=== PATIENT | male | born 1960 | race Caucasian/White ===

== ENCOUNTER → 2016-04-30 | Outpatient (CLI) | payer OTHER, BC ==
[~2016-04-30] MED LIST: ACET325T95 PO; ATEN-173 PO; LISI-725 PO
--- NOTE | 2016-04-30 15:18 | DIAGNOSTIC IMAGING REPORT ---
MRI right shoulder RIGHT UPPER EXT JOINT WITHOUT CLINICAL HISTORY: R SHOULDER PAIN Right pain TECHNIQUE: Multiaxial MRI acquisition COMPARISON STUDY: None FINDINGS: Signal characteristics of the osseous structures indicate moderate hypertrophic change acromioclavicular joint. Impingement is considered minimal. The acromion is intact. There are mild degenerative changes of the glenoid labrum with mild substance loss of the articular surfaces. A Well-defined acute labral tear is not appreciated. There is a mild biceps tendinitis. The infraspinatus tendon is unremarkable. There is a partial thickness tear of the subscapularis tendon. Supraspinatus tendon shows a moderate matrix deterioration with mild thinning. A well-defined focal supraspinatus tear is not appreciated. IMPRESSION: 1. Partial thickness tear subscapularis tendon with moderate associated tendinopathy. 2. Moderate degenerative substance change of the supraspinatus tendon although there is no evidence for significant tear at that site. 3. Mild degenerative change of the substance of the glenoid labrum as well as acromioclavicular joint. 4. No evidence for a full-thickness rotator cuff tear. 5. Mild biceps tendinitis Electronically signed by: Wally Velásquez M.D. 04/30/2016 3:16 PM Dictated Date/Time: 04/30/2016 3:09 PM
== END | disposition home or self-care (01) ==
PROVIDERS: ATTEND Orthopaedic Surgery
DX: S46.811A Strain of other muscles, fascia and tendons at shoulder and upper arm level, right arm, initial encounter (principal); X58.XXXA Exposure to other specified factors, initial encounter; R93.7 Abnormal findings on diagnostic imaging of other parts of musculoskeletal system

== ENCOUNTER → 2016-09-10 | Outpatient (CLI) | payer OTHER, BC ==
[2016-09-10 12:45] LABS: BASO % 1.4 %; COMPLETE YES; EOS % 9.1 %; IG% 0.4 %; LYMPH % 17.9 %; LYMPH ABS # 1.26 K/uL (1.2-3.4); MEAN CELL VOLUME 92.8 fL (80-100); MEAN CORPUSCULAR HEMOGLOBIN 30.9 pg (25-34); MEAN CORPUSCULAR HGB CONC 33.3 g/dl (32-36); MEAN PLATELET VOLUME 11.7 fL (7.4-10.4); MONO % 12.5 %; NEUT % 58.7 %; PLATELET COUNT 219 K/uL (130-400); RED BLOOD COUNT 5.28 M/uL (4.7-6.1); WHITE BLOOD COUNT 7.02 K/uL (4.8-10.8)
[2016-09-10 13:00] LABS: BLOOD UREA NITROGEN 19 mg/dl (7-18); CALCIUM 8.9 mg/dl (8.5-10.1); CARBON DIOXIDE 28 mmol/L (21-32); CHLORIDE 108 mmol/L (98-107); GLUCOSE 115 mg/dl (70-99); POTASSIUM 4.2 mmol/L (3.5-5.1); SODIUM 143 mmol/L (136-145)
== END | disposition home or self-care (01) ==
LOC: C.CPL 11:16
PROVIDERS: ATTEND Orthopaedic Surgery
DX: M25.511 Pain in right shoulder (principal); R00.1 Bradycardia, unspecified

== ENCOUNTER → 2017-07-02 | Outpatient (CLI) | payer OTHER, BC ==
[~2017-07-02] MED LIST changes: -ACET325T95 PO; +ATOR-22 PO; -LISI-725 PO; +LISI-729 PO; +PRED20TA PO; +TYLOTC325 PO; +[UNRECOGNIZED DRUG - OTHER] PO
[2017-07-02 16:43] LABS: BASO % 0.6 %; BASO ABS # 0.05 K/uL (0-0.2); EOS % 3.7 %; EOS ABS # 0.31 K/uL (0-0.5); HEMATOCRIT 43.8 % (42-52); HEMOGLOBIN 15.6 g/dL (14.0-18.0); IG# 0.05 K/uL (0.00-0.02); LYMPH ABS # 2.03 K/uL (1.2-3.4); MEAN CELL VOLUME 91.8 fL (80-100); MEAN CORPUSCULAR HEMOGLOBIN 32.7 pg (25-34); MEAN CORPUSCULAR HGB CONC 35.6 g/dl (32-36); MEAN PLATELET VOLUME 11.7 fL (7.4-10.4); MONO % 12.9 %; MONO ABS # 1.09 K/uL (0.11-0.59); NEUT % 58.2 %; NEUT ABS # 4.93 K/uL (1.4-6.5); PLATELET COUNT 167 K/uL (130-400); RED CELL DISTRIBUTION WIDTH CV 12.2 % (11.5-14.5); RED CELL DISTRIBUTION WIDTH SD 41.3 fL (36.4-46.3); WHITE BLOOD COUNT 8.46 K/uL (4.8-10.8)
[2017-07-02 17:04] LABS: BLOOD UREA NITROGEN 14 mg/dl (7-18); CALCIUM 9.1 mg/dl (8.5-10.1); CARBON DIOXIDE 27 mmol/L (21-32); GLUCOSE 69 mg/dl (70-99); POTASSIUM 3.8 mmol/L (3.5-5.1); SODIUM 139 mmol/L (136-145)
== END | disposition home or self-care (01) ==
LOC: C.LAB 15:19
PROVIDERS: ATTEND Orthopaedic Surgery
DX: S83.281A Other tear of lateral meniscus, current injury, right knee, initial encounter (principal); X58.XXXA Exposure to other specified factors, initial encounter

== ENCOUNTER → 2017-07-18 | Day surgery (SDC) | payer OTHER, BC ==
--- NOTE | 2017-07-02 15:56 | HISTORY & PHYSICAL EXAMINATION ---
DATE OF ADMISSION: 07/18/2017 SUBJECTIVE CHIEF COMPLAINT: Right knee pain. HISTORY OF PRESENT ILLNESS: The patient is a 56-year-old male that presents with right knee pain. He notes pain going up and down stairs and he notes a clicking and locking with daily activities. He has pain along the medial joint line. He has pain along the lateral joint line as well. MRI demonstrated a lateral meniscus tear. The patient would like to undergo a right knee partial lateral meniscectomy. PAST MEDICAL HISTORY: Significant for hypertension and hypercholesterolemia. PAST SURGICAL HISTORY: Significant for a left rotator cuff repair and nasal reconstruction. SOCIAL HISTORY: He drinks a couple beers a day. He denies smoking or tobacco use. Denies IV or illegal drug use. He lives in a 1-therese house. He currently works as a [employer] FAMILY HISTORY: Noncontributory. ALLERGIES: No known drug allergies. MEDICATIONS: Atenolol and lisinopril. REVIEW OF SYSTEMS: Denies headaches, fevers, chills, double vision, blurry vision, sore throat, cough, chest pain, nausea, vomiting, diarrhea, constipation, numbness, tingling, tired, urinary difficulties, thoughts to harm self or harm others. He is positive for joint pain, joint stiffness of the right knee. OBJECTIVE: GENERAL APPEARANCE: The patient is a 56-year-old male sitting, in no acute distress. He is well dressed, well nourished. He is awake, alert and oriented x3. VITAL SIGNS: He is 5 feet 10 inches tall, 205 pounds. Blood pressure is 130/84. HEENT: Normocephalic, atraumatic. Extraocular movements are intact. Mucosa was moist. No septal deviation. NECK: Supple with no lymphadenopathy, no JVD, no thyromegaly. HEART: Regular rate and rhythm. No murmurs or gallops. LUNGS: Clear to auscultation with no wheezing or rhonchi. ABDOMEN: Soft, nontender, nondistended. Normal bowel sounds, no hepatosplenomegaly. EXTREMITIES: Paying particular attention to the right knee. He does have lateral joint line pain as well medial joint line pain. He has positive Troy test. Range of motion is 0-110 degrees. He does have decreased strength due to pain. Ligaments were intact. NEUROLOGIC: Cranial nerves II-XII were tested and pulses were compared bilaterally and were equal. IMAGING: MRI of the right knee demonstrated a lateral meniscus tear. IMPRESSION: Right knee lateral meniscus tear. PLAN: The patient is scheduled for a right partial lateral meniscectomy. The patient has undergone conservative treatment with no relief of his symptoms. MRI demonstrated a lateral meniscus tear of the right knee. The patient would like to proceed with scheduled surgery. Risks and benefits were discussed with the patient including but not limited to infection, pain, DVT, failure to relieve him symptoms, damage to blood vessels, damage to nerves, decreased range of motion, risks of anesthesia and were all discussed with the patient. The patient understands these risks and he wishes to proceed. All questions were answered to his satisfaction. No DVT prophylaxis needed. Discharge, he would like to go home with self-care. NICKI
[~2017-07-18] VITALS: Ht 175.3 cm; Wt 94.5 kg
[~2017-07-18] MED LIST changes: +ATROPINE SULFATE 0.1 MG/ML 5ML SYR IV PRN; +BUPIVACAINE 0.5 % 5 MG/1 ML MPF 30ML VIAL ONE; +CEFAZOLIN SOD 2000MG/15 ML IV PUSH IV ONE; +DEXAMETHASONE SOD INJ 4 MG/ML VIAL ONE; +EpHEDrine SULFATE INJ 50 MG/ML AMP IV PRN; +EpINEphrine HCL INJ 1 MG/ML 1ML SYRINGE ONE; +FENTANYL CITRATE INJ 50 MCG/1 ML 2 ML VIAL IV PRN; +FENTANYL CITRATE INJ 50 MCG/1 ML 2 ML VIAL ONE; +GLYCOPYRROLATE INJ 0.2 MG/ML VIAL ONE; +HYDR-5688 PO; +HYDROCODONE/ACETAMIN 5/325MG TAB PO PRN; +HYDROmorphone INJ 2 MG/ML SYR/VIAL IV PRN; +HydrALAZINE HCL 20 MG/ML VIAL ONE; +LACTATED RINGER'S 1000ML 1,000 ML IV SCH; +LIDOCAINE HCL 2% 2 ML VIAL (20MG/ML) ONE; +LIDOCAINE/EPINEPHRINE 1% 20 ML VIAL ONE; +MIDAZOLAM HCL 1 MG/ML 2ML VIAL ONE; +NURSING VERBAL MED ORDER ONE; +ONDANSETRON INJ 2 MG/ML 2 ML VIAL IV PRN; +ONDANSETRON INJ 2 MG/ML 2 ML VIAL ONE; +PHENYLEPHRINE 100MCG/ML 5ML SYR IV PRN; +PROM25TA9 PO; +PROMETHAZINE HCL INJ 12.5 MG in SODIUM CHLORIDE 0.9% 50ML 50 ML IV PRN; +PROPOFOL IV EMULSION 10 MG/ML 20 ML VIAL IV ONE; +SODIUM CHLORIDE 0.9% 1000ML 1,000 ML IV SCH
[2017-07-18 09:57] VITALS: BP 149/81; PULSE 65; TEMP 36.9; O2SAT 96; Ht 175.3 cm; Wt 94.5 kg
--- NOTE | 2017-07-18 10:27 | History & Physical Bridge Note ---
H&P Re-Evaluation Bridge Note: I have examined the patient, reviewed the History & Physical and in the interval since the performance of the History & Physical I have noted the following changes of clinical significance: No changes noted
--- NOTE | 2017-07-18 11:47 | Discharge Instructions ---
Discharge Instructions Date of Service Jul 18, 2017. Visit Reason for Visit: Right Knee Lateral Meniscus Tear Discharge Discharge Diagnosis / Problem: S/P Right knee partial lateral meniscectomy Discharge Goals Goal(s): Decrease discomfort, Improve function Activity Recommendations Activity Limitations: per Instructions/Follow-up section Anesthesia . Post Anesthesia Instructions: If you have had General Anesthesia or IV Sedation: * Do not drive today. * Resume driving when surgeon permits. * Do not make important decisions or sign legal documents today. * Call surgeon for: 1. Temperature elevations greater than 101 degrees F. 2. Uncontrollable pain. 3. Excessive bleeding. 4. Persistent nausea and vomiting. 5. Medication intolerance (nausea, vomiting or rash). * For nausea and vomiting use only clear liquids such as: tea, soda, bouillon until nausea subsides, then gradually increase diet as tolerated. * If you have any concerns or questions, call your surgeon's office. If physician is unavailable and it is an emergency, call 911 or go to the nearest emergency room. . Instructions / Follow-Up Instructions / Follow-Up ACTIVITY RECOMMENDATIONS: * You may walk on the leg with or without crutches as comfort permits. * Bending of the knee should start at once. * Do not shower for 48 hours following surgery. SPECIAL CARE INSTRUCTIONS: * You may cleanse the skin adjacent to the small wounds with soap and water at the time of the first dressing change. * The application of an ice bag to the front and sides of the knee will decrease swelling and discomfort for the first 48 hours. * The small incisions may be sore and develop bruising. This bruising does not require any special care. SPECIAL PRECAUTIONS: * If you experience unusual pain unrelieved by prescriptions, temperature elevation (100 degrees F. or above) or progressive swelling or bleeding, you should contact our office at for further evaluation. * You may have been prescribed pain medication. If you experience nausea and/or fine skin rash, discontinue this medication and contact our office at for an alternate medication. DRESSING: * Dressing should be comfortable and absorb any leakage of fluid and/or blood. * The dressing may become moist or bloodstained. * Dressing may be removed 48 hours after surgery and bandaids placed over the small surgical incisions. If can be removed sooner if it becomes very soiled or loose. * Bandaids may be used over next several days as needed and can be discontinued when there is not further drainage from the wounds. FOLLOW UP VISIT: If appointment is not already scheduled: Please call [facility] to make a follow-up appointment for 10 -14 days after your surgery at . Diet Recommendations Recommended Home Diet: no limitations Pending Studies Studies pending at discharge: no Medical Emergencies . Who to Call and When: Medical Emergencies: If at any time you feel your situation is an emergency, please call 911 immediately. . Non-Emergent Contact Non-Emergency issues call your: Surgeon Call Non-Emergent contact if: temperature is above 101.5, your pain is worsening, wound has increased drainage, wound has increased redness . . "Provider Documentation" section prepared by Ketan Marcos. . [place] Drug Monitoring Program Search Results: patient reviewed within database, no issues identified
--- NOTE | 2017-07-18 12:14 | [facility] Operative Report ---
Operative Report Operative Date Jul 18, 2017. Pre-Operative Diagnosis Right knee lateral meniscus tear Post-Operative Diagnosis Same plus chondromalacia lateral femoral condyle Procedure(s) Performed Right Knee Arthroscopy with Partial Lateral Menisectomy and Chondroplasty lateral femoral condyle Surgeon Dr. Urbina Welding Machine Operator/Tender Surgeon(s) None Estimated Blood Loss 1 cc Findings As above Specimens None per surgeon Drains None Anesthesia Type General Complication(s) none Disposition Recovery Room / PACU Indications The patient is a 48-year-old male developed a tear of the lateral meniscus the right knee. He wishes to proceed with arthroscopy. Description of Procedure MRI demonstrated a complex tear of the posterior horn of the lateral meniscus. We discussed various treatment measures. The patient wished to proceed with arthroscopic partial lateral meniscectomy. Risks, benefits and alternatives to surgery including, but not limited to, infection, DVT, pain, stiffness, need for revision surgery, failure to relieve all symptoms, damage to blood vessels, damage to nerves, risk of the anesthesia were discussed with the patient and they wished to proceed. The patient was identified. Laterality was confirmed and marked. The patient received a preoperative antibiotic. They were transferred to the operating room and placed in supine position and induced into general endotracheal anesthesia per the anesthesia staff. A well-padded tourniquet was placed on the thigh and the limb was prepped and draped in the usual standard manner with ChloraPrep. The limb was exsanguinated and the tourniquet was inflated. I made a standard anterolateral viewing portal made through a stab incision and bluntly entered the suprapatellar pouch. Then under spinal needle localization I established an anteromedial portal. There was grade 0 cartilage of the patella. There was grade 0 cartilage of the trochlea. There was grade 0 cartilage of the medial femoral condyle. There was grade 0 cartilage of the medial tibial plateau. The medial meniscus was normal. The ACL and PCL were probed and were normal. There was a complex tear of the posterior horn, body, anterior horn of the lateral meniscus. This was debrided back to a stable base utilizing combination of the shaver as well as meniscal biter. There was grade 2 cartilage of the lateral femoral condyle. The unstable chondral flaps were debrided back to stable base utilizing a shaver. There was grade 1 cartilage of the lateral tibial plateau. All of the instrumentation was removed from the knee. The portal sites were closed with nylon. A sterile dressing was applied and the tourniquet was released. All needle and sponge counts were correct at the end of the procedure. The patient was transferred to the PACU in stable condition without apparent complication. I attest to the content of the Intraoperative Record and any orders documented therein. Any exceptions are noted below.
--- NOTE | 2017-07-18 13:02 | Anesthesiology Progress Note ---
Anesthesia Post Op Note Date & Time Jul 18, 2017 at 13:02 Vital Signs Pain Intensity: 0 Vital Signs Past 12 Hours Date Time Temp Pulse Resp B/P (MAP) Pulse Ox O2 Delivery O2 Flow Rate FiO2 07/18/17 12:47 71 18 07/18/17 12:47 74 18 97 07/18/17 12:46 142/81 07/18/17 12:42 80 24 07/18/17 12:42 78 24 94 07/18/17 12:41 116/89 07/18/17 12:40 62 16 07/18/17 12:40 70 16 98 07/18/17 12:36 134/86 07/18/17 12:35 72 26 98 07/18/17 12:35 71 26 07/18/17 12:34 73 21 98 07/18/17 12:34 61 21 07/18/17 12:31 148/79 07/18/17 12:29 70 17 07/18/17 12:29 70 17 98 07/18/17 12:26 140/82 07/18/17 12:25 134/81 07/18/17 12:24 81 12 07/18/17 12:24 82 12 97 07/18/17 12:24 36.6 79 16 134/81 98 Nasal Cannula 4 07/18/17 09:57 36.9 65 20 149/81 (103) 96 Room Air Notes Mental Status: alert / awake / arousable, participated in evaluation Pt Amnestic to Procedure: Yes Nausea / Vomiting: adequately controlled Pain: adequately controlled Airway Patency, RR, SpO2: stable & adequate BP & HR: stable & adequate Hydration State: stable & adequate Anesthetic Complications: no major complications apparent Awake, doing well, no complaints. VSS.
[2017-07-18 13:10] VITALS: BP 105/76; PULSE 80; TEMP 36.4; O2SAT 97
[2017-07-18 13:40] VITALS: BP 159/92; PULSE 73; TEMP 36.6; O2SAT 97
== END | disposition home or self-care (01) ==
LOC: C.ACU 09:30
PROVIDERS: ATTEND Orthopaedic Surgery
DX: S83.281A Other tear of lateral meniscus, current injury, right knee, initial encounter (principal); X58.XXXA Exposure to other specified factors, initial encounter; M94.261 Chondromalacia, right knee; I10 Essential (primary) hypertension; E78.5 Hyperlipidemia, unspecified; E78.00 Pure hypercholesterolemia, unspecified; Z88.5 Allergy status to narcotic agent

== ENCOUNTER → 2017-10-29 | Outpatient (CLI) | payer OTHER, BC ==
[~2017-10-29] MED LIST changes: -ATROPINE SULFATE 0.1 MG/ML 5ML SYR IV PRN; -BUPIVACAINE 0.5 % 5 MG/1 ML MPF 30ML VIAL ONE; -CEFAZOLIN SOD 2000MG/15 ML IV PUSH IV ONE; -DEXAMETHASONE SOD INJ 4 MG/ML VIAL ONE; -EpHEDrine SULFATE INJ 50 MG/ML AMP IV PRN; -EpINEphrine HCL INJ 1 MG/ML 1ML SYRINGE ONE; -FENTANYL CITRATE INJ 50 MCG/1 ML 2 ML VIAL IV PRN; -FENTANYL CITRATE INJ 50 MCG/1 ML 2 ML VIAL ONE; -GLYCOPYRROLATE INJ 0.2 MG/ML VIAL ONE; -HYDR-5688 PO; -HYDROCODONE/ACETAMIN 5/325MG TAB PO PRN; -HYDROmorphone INJ 2 MG/ML SYR/VIAL IV PRN; -HydrALAZINE HCL 20 MG/ML VIAL ONE; -LACTATED RINGER'S 1000ML 1,000 ML IV SCH; -LIDOCAINE HCL 2% 2 ML VIAL (20MG/ML) ONE; -LIDOCAINE/EPINEPHRINE 1% 20 ML VIAL ONE; -MIDAZOLAM HCL 1 MG/ML 2ML VIAL ONE; -NURSING VERBAL MED ORDER ONE; -ONDANSETRON INJ 2 MG/ML 2 ML VIAL IV PRN; -ONDANSETRON INJ 2 MG/ML 2 ML VIAL ONE; -PHENYLEPHRINE 100MCG/ML 5ML SYR IV PRN; -PRED20TA PO; -PROMETHAZINE HCL INJ 12.5 MG in SODIUM CHLORIDE 0.9% 50ML 50 ML IV PRN; -PROPOFOL IV EMULSION 10 MG/ML 20 ML VIAL IV ONE; +RXC5 PO; -SODIUM CHLORIDE 0.9% 1000ML 1,000 ML IV SCH; -TYLOTC325 PO; -[UNRECOGNIZED DRUG - OTHER] PO
--- NOTE | 2017-10-29 09:40 | DIAGNOSTIC IMAGING REPORT ---
CHEST 2 VIEWS ROUTINE CLINICAL HISTORY: PAT preoperative evaluation COMPARISON STUDY: No previous studies for comparison. FINDINGS: The bones soft tissues and hemidiaphragms are normal. The cardiomediastinal silhouette is normal. The lungs are clear. The pulmonary vasculature is normal. IMPRESSION: Negative chest. The above report was generated using voice recognition software. It may contain grammatical, syntax or spelling errors. Electronically signed by: Wally Velásquez M.D. 10/29/2017 9:38 AM Dictated Date/Time: 10/29/2017 9:38 AM
[2017-10-29 10:16] LABS: BASO % 0.9 %; BASO ABS # 0.05 K/uL (0-0.2); EOS ABS # 0.32 K/uL (0-0.5); HEMATOCRIT 47.6 % (42-52); HEMOGLOBIN 16.4 g/dL (14.0-18.0); IG# 0.03 K/uL (0.00-0.02); LYMPH ABS # 1.17 K/uL (1.2-3.4); MEAN CELL VOLUME 93.2 fL (80-100); MEAN CORPUSCULAR HEMOGLOBIN 32.1 pg (25-34); MEAN CORPUSCULAR HGB CONC 34.5 g/dl (32-36); MEAN PLATELET VOLUME 12.5 fL (7.4-10.4); MONO % 12.2 %; MONO ABS # 0.65 K/uL (0.11-0.59); NEUT % 58.3 %; PLATELET COUNT 169 K/uL (130-400); RED CELL DISTRIBUTION WIDTH CV 12.5 % (11.5-14.5); RED CELL DISTRIBUTION WIDTH SD 42.9 fL (36.4-46.3); WHITE BLOOD COUNT 5.32 K/uL (4.8-10.8)
[2017-10-29 11:16] LABS: BLOOD UREA NITROGEN 20 mg/dl (7-18); CARBON DIOXIDE 27 mmol/L (21-32); CREATININE 0.94 mg/dl (0.60-1.40); GLUCOSE 116 mg/dl (70-99); POTASSIUM 4.4 mmol/L (3.5-5.1); SODIUM 138 mmol/L (136-145)
[2017-10-29 11:19] LABS: ALBUMIN 3.9 gm/dl (3.4-5.0); TOTAL PROTEIN 7.3 gm/dl (6.4-8.2)
== END | disposition home or self-care (01) ==
LOC: C.CPL 08:28
PROVIDERS: ATTEND Physician Assistant Medical
DX: Z01.812 Encounter for preprocedural laboratory examination (principal); Z01.810 Encounter for preprocedural cardiovascular examination; Z01.818 Encounter for other preprocedural examination

== ENCOUNTER 2017-11-06 08:04 | Day surgery (SDC) | payer OTHER, BC ==
--- NOTE | 2017-10-28 15:37 | PAT Medication Instructions ---
Service Date Oct 28, 2017. Current Home Medication List Atenolol (Tenormin), 25 MG PO QAM Atorvastatin (Lipitor), 20 MG PO QAM Lisinopril (Zestril), 5 MG PO QAM Medication Instructions For Your Scheduled Surgery - Hold the following medications the morning of surgery: Lisinopril (Zestril), 5 MG PO QAM - Take the following medications the morning of surgery with a sip of water: Atenolol (Tenormin), 25 MG PO QAM Atorvastatin (Lipitor), 20 MG PO QAM If you have any questions please call us at [phone] or [phone] or [phone]
[2017-10-29 08:37] VITALS: BMI 31.0
--- NOTE | 2017-11-05 09:39 | HISTORY & PHYSICAL EXAMINATION ---
DATE OF ADMISSION: 11/06/2017 CHIEF COMPLAINT: Chronic right shoulder pain. HISTORY OF PRESENT ILLNESS: This is a 57-year-old male patient of Dr. Hammond who apparently fell off of a truck in the recent past. He has failed conservative treatment. He has had chronic pain and weakness with his right shoulder. After getting the appropriate imaging, he has been diagnosed with impingement, rotator cuff tear, AC joint arthritis and biceps tendinopathy. Patient wished to proceed with a right shoulder arthroscopic subacromial decompression, rotator cuff repair, distal clavicle excision, possible biceps tenodesis. PAST MEDICAL HISTORY: Hypertension, hypercholesterolemia. SOCIAL HISTORY: Nonsmoker, approximately 30 drinks of alcohol per week. PAST SURGICAL HISTORY: Knee surgery and shoulder surgery. FAMILY HISTORY: Noncontributory. REVIEW OF SYSTEMS: Patient complains of chronic right shoulder pain as a result of an injury otherwise denies any shortness of breath, chest pain, nausea, vomiting or any other joint complaints. MEDICATIONS: Atenolol 25 mg daily, Lisinopril 20 mg daily, atorvastatin 20 mg daily. ALLERGIES: No known drug allergies. PHYSICAL EXAMINATION: GENERAL: Well-developed, well-nourished 57-year-old male in no acute distress. He is alert and oriented x3 and pleasant. HEENT: Normocephalic, atraumatic. Extraocular motions are intact. Pupils equal and reactive to light. HEART: Regular rate and rhythm. No murmurs appreciated. LUNGS: Clear. ABDOMEN: Soft, nontender, bowel sounds present. EXTREMITIES: Right shoulder, he has full range of motion with pain. He has positive impingement maneuvering. He has 4+/5 strength globally. He has AC joint tenderness. NEUROLOGIC: Neurovascularly he is intact in his right upper extremity. DIAGNOSES: Right shoulder impingement, rotator cuff tear, distal clavicle arthritis and biceps tendinitis. He also has a history of hypertension, hypercholesterolemia. PLAN: Patient was advised of his diagnosis. Indications, risks, benefits, postop course have all been reviewed. Patient wished to proceed with a right shoulder arthroscopic subacromial decompression, rotator cuff repair, distal clavicle excision, possible biceps tenodesis. Necessary consent forms, preoperative testing and clearances will be obtained.
[~2017-11-06] VITALS: Ht 175.3 cm; Wt 95.8 kg
[~2017-11-06 08:04] MED LIST changes: +CEFAZOLIN 2000MG IV PUSH 15 ML IV SCH; +LACTATED RINGER'S 1000ML 1,000 ML IV SCH; -PROM25TA9 PO; +ROPIVACAINE 0.5% 5 MG/ML 30 ML VIAL ONE; -RXC5 PO
[2017-11-06 08:33] VITALS: BP 178/87; PULSE 56; TEMP 36.8; O2SAT 95; Ht 175.3 cm; Wt 95.8 kg
[2017-11-06] MEDS ORDERED: FENTANYL CITRATE INJ 50 MCG/1 ML 2 ML VIAL IV PRN (09:15)
[2017-11-06] MEDS ORDERED: EpHEDrine SULFATE INJ 50 MG/ML AMP IV PRN (09:15)
[2017-11-06] MEDS ORDERED: ATROPINE SULFATE 0.1 MG/ML 5ML SYR IV PRN (09:15)
[2017-11-06] MEDS ORDERED: ONDANSETRON INJ 2 MG/ML 2 ML VIAL IV PRN (09:15)
[2017-11-06] MEDS ORDERED: NEOSTIGMINE METHYLSULFATE 5 MG/5 ML SYR ONE (10:00)
[2017-11-06] MEDS ORDERED: ONDANSETRON INJ 2 MG/ML 2 ML VIAL ONE (10:00)
[2017-11-06] MEDS ORDERED: EpHEDrine SULFATE INJ 50 MG/ML AMP ONE (10:00)
[2017-11-06] MEDS ORDERED: DEXAMETHASONE SOD INJ 4 MG/ML VIAL ONE (10:00)
[2017-11-06] MEDS ORDERED: SUCCINYLCHOLINE CHLORIDE 20 MG/ML 10 ML VIAL IV ONE (10:00)
[2017-11-06] MEDS ORDERED: PROPOFOL IV EMULSION 10 MG/ML 20 ML VIAL ONE (10:00)
[2017-11-06] MEDS ORDERED: GLYCOPYRROLATE INJ 0.2 MG/ML VIAL ONE (10:00)
[2017-11-06] MEDS ORDERED: LIDOCAINE HCL 2% 2 ML VIAL (20MG/ML) ONE (10:00)
[2017-11-06] MEDS ORDERED: PHENYLEPHRINE HCL INJ 10 MG/ML VIAL ONE ×2 (10:00→13:41)
[2017-11-06] MEDS ORDERED: FENTANYL CITRATE INJ 50 MCG/1 ML 2 ML VIAL ONE (10:01)
[2017-11-06] MEDS ORDERED: MIDAZOLAM HCL 1 MG/ML 2ML VIAL ONE (10:01)
[2017-11-06] MEDS ORDERED: EpINEphrine HCL INJ 1 MG/ML 1ML SYRINGE ONE (11:42)
--- NOTE | 2017-11-06 14:34 | [facility] Post Operative Brief Note ---
Immediate Operative Summary Operative Date Nov 06, 2017. Pre-Operative Diagnosis Right shoulder impingement, rotator cuff tear, distal clavicle arthritis and biceps tendinitis. Post-Operative Diagnosis Right shoulder impingement, rotator cuff tear, distal clavicle arthritis and biceps tendinitis,biceps tendinopathy and instabiity biceps. Procedure(s) Performed Right Shoulder Arthroscopy, Subacromial Decompression, Rotator Cuff Repair, Distal Clavicle Excision, Bicep Tenodesis Surgeon Dr Bartlett Pre School Manager Surgeon(s) Wally Reina PA-C Estimated Blood Loss 15CC Findings Consistent with Post-Op Diagnosis Specimens None per surgeon Drains None Anesthesia Type General Regional Complication(s) none Disposition Accompanied Pt To Recover: no Disposition: Recovery Room / PACU Overlapping Procedure I was present for: the critical portions of procedure.
[2017-11-06] MEDS ORDERED: SODIUM CHLORIDE 0.9% 1000ML 1,000 ML IV SCH (14:37)
[2017-11-06] MEDS ORDERED: RXC5 PO (14:40)
[2017-11-06] MEDS ORDERED: ROCURONIUM BROMIDE 10 MG/ML 5 ML VIAL ONE (14:41)
--- NOTE | 2017-11-06 14:43 | Discharge Instructions ---
Discharge Instructions Date of Service Nov 06, 2017. Admission Reason for Admission: Right Shoulder Impingement Syndrome, Complete Rtc Discharge Discharge Diagnosis / Problem: Right rotator cuff repair, decompression, biceps repair Discharge Goals Goal(s): Improve function Activity Recommendations Activity Limitations: as noted below . Instructions / Follow-Up Instructions / Follow-Up Please see printed home instructions and home exercises in chart. NO formal PT needed at this point. Sling at all times except when doling printed exercises. Ice as needed. No driving. Follow up with Dr. Bartlett's office 10-12 days post op, call [phone] to confirm appt. Current Hospital Diet Patient's current hospital diet: Discharge Diet Recommended Diet: Regular Diet Procedures Procedures Performed: Right Shoulder Arthroscopy, Subacromial Decompression, Rotator Cuff Repair, Distal Clavicle Excision, Bicep Tenodesis Pending Studies Studies pending at discharge: no Medical Emergencies . Who to Call and When: Medical Emergencies: If at any time you feel your situation is an emergency, please call 911 immediately. . Non-Emergent Contact Non-Emergency issues call your: Primary Care Provider . "Provider Documentation" section prepared by Wally Reina. . [place] Drug Monitoring Program Search Results: patient reviewed within database, no issues identified
[2017-11-06] MEDS ORDERED: OXYCODONE/ACETAMINOPHEN 5-325 TAB PO PRN ×2 (14:45)
[2017-11-06] MEDS ORDERED: PROM25TA9 PO (14:47)
[2017-11-06 15:20] VITALS: BP 142/75; PULSE 66; TEMP 36.5; O2SAT 95
--- NOTE | 2017-11-06 15:26 | Anesthesiology Progress Note ---
Anesthesia Post Op Note Date & Time Nov 06, 2017 at 15:26 Vital Signs Pain Intensity: 0 Vital Signs Past 12 Hours Date Time Temp Pulse Resp B/P (MAP) Pulse Ox O2 Delivery O2 Flow Rate FiO2 11/06/17 15:15 68 20 142/71 95 Room Air 11/06/17 15:05 36.2 68 20 144/68 95 Room Air 11/06/17 14:55 65 17 140/74 95 Room Air 11/06/17 14:45 65 18 153/75 99 Room Air 11/06/17 14:35 36.2 68 12 165/83 99 Oxymask 10 11/06/17 08:33 36.8 56 20 178/87 (117) 95 Room Air Notes Mental Status: alert / awake / arousable, participated in evaluation Pt Amnestic to Procedure: Yes Nausea / Vomiting: adequately controlled Pain: adequately controlled Airway Patency, RR, SpO2: stable & adequate BP & HR: stable & adequate Hydration State: stable & adequate Anesthetic Complications: no major complications apparent
[2017-11-06 15:50] VITALS: BP 149/65; PULSE 63; O2SAT 94
[2017-11-06 16:10] VITALS: BP 144/79; PULSE 69; TEMP 36.5; O2SAT 95
--- NOTE | 2017-11-06 16:54 | OPERATIVE REPORT ---
DATE OF OPERATION: 11/06/2017 INDICATION FOR PROCEDURE: The patient is a 57-year-old male who suffered a right shoulder injury and tore his rotator cuff. He has radiographs demonstrates some moderate AC joint osteoarthritis, possibly causing impingement, type 2 acromion process. He has an anterior full thickness rotator cuff tear of the supraspinatus. He has biceps tendinopathy. There was a split-type degenerative tear of the subscapularis, looked more chronic. This would render the biceps unstable through the split as there is some evidence of possible subluxation of biceps. 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 PROCEDURE: Right shoulder arthroscopy with arthroscopic rotator cuff repair, arthroscopic biceps tenodesis, arthroscopic subacromial decompression, and distal clavicle excision. SURGEON: Jerome Bartlett MD LOCOMOTIVE ENGINEER ELECTRIC: Wally Reina PA-C ANESTHESIA: Regional block in general. SPECIMENS: None. DRAINS: None. ESTIMATED BLOOD LOSS: 15 mL. OPERATIVE PROCEDURE: The patient taken to the operating room, anesthetized under regional block and general anesthetic. He was positioned on a Schlein shoulder table in 70 degree beach chair position and then, his right shoulder. Exam under anesthesia demonstrated good range of motion. His right shoulder was sterilely prepped and draped with ChloraPrep in usual sterile fashion. Arthroscopy was initiated with posterior arthroscopy portal in the soft spot, anterior portal in the rotator interval anterior to the AC joint, the lateral portal in the subacromial space and a superior, anterior lateral incision for suture anchor placement. In the glenohumeral joint, the patient had clear articular surface on the glenoid, intact labrum circumferentially and humeral head had an area of wear underlying the rotator cuff tear with articular thinning, grade 3 thinning. There is also some fraying at the anterior articular surface near the rotator interval. There was full thickness supraspinatus tendon tear extending into the rotator interval area with an L-shaped type tear. There was thinning of the biceps tendon with flattening and fraying of the biceps and some instability anteriorly through the split type degenerative tear of the subscapularis which looked to be chronic. There is no detachment of subscapularis off the lesser tuberosity, but there was some degenerative splitting between the outer and inner layer of the subscapularis. In the subacromial space, there was some fraying in the CA ligament, type 2 acromion process. There was an inferior AC joint spurs contributing to impingement and moderate AC joint arthritis. There was chronic thickened subacromial bursitis. The rotator cuff tear itself was displaced posteriorly and elevated superiorly requiring us to go ahead and do the repair prior to the decompression because of visualization. Attention was first taken to the glenohumeral joint at which time the biceps was debrided. I used a radiofrequency ablator to ablate and release some of the anterior superior capsule under the rotator cuff, so we could mobilize the supraspinatus. A spinal needle was placed through the biceps tendon, a #1 PDS sutures in to capture the biceps tendon and then the biceps tenotomy was performed using a radiofrequency ablator to release the biceps off the superior labrum. Then with the arthroscope in the subacromial space, the edge of the rotator cuff, undersurface of the rotator cuff was debrided. The footprint of supraspinatus at the area of the tear was debrided from the articular margin out to the lateral greater tuberosity and debrided off the greater tuberosity to help with a healing response. The upper bicipital groove was debrided down to bone. The biceps was tenodesed into the groove using a 2.8 mm Ramos [employer] Nephew Acufex anchor. After the suture anchor was placed, we placed traction on the biceps tendon to get it out to length and then placed 1 simple suture and 1 Whipstitch suture using a scOneMobion suture passer with 3 throws of the whipstitch. The whipstitch was tied with the surgeon's knot, the simple suture was tied with a [place] sliding locking knot, 3 reverse half hitches alternating posts. Sutures were cut. Excess biceps tendon was cut with the ablator and removed from the joint. Then, the rotator cuff was repaired with dual row fixation. We used a 5.5 mm Healicoil anchor with Ultrabraid suture and Ultrabraid tape. The suture was passed in horizontal mattress fashion. Tapes were passed just medial to the horizontal mattress suture. The [id number] suture was placed between the anterior rotator interval and subscapularis tissue and the supraspinatus tissue to advance the interval laterally and anteriorly to close the allowing anatomic repair of the supraspinatus laterally. The horizontal mattress suture was first tied and then the [id number] suture was tied and then the tails from the horizontal mattress and the tapes were placed into a 5.5 footprint laterally. The tapes were cut and then the suture was passed through the posterior supraspinatus which delaminated off the infraspinatus and this upper flap was secured with a simple suture using the Ultrabraid that was in the footprint, tied with surgeon's knot. The repair was secure now and we had a better visualization of the subacromial space. A subacromial decompression and distal clavicle excision was performed using a radiofrequency ablator to ablate the bursa on the undersurface of the acromion. The CA ligament was released off the spur of the anterior acromion. The inferior AC joint capsule was ablated for 1 cm to expose 1 cm of distal clavicle. A 5.5 bur was used to plane down the acromion to a type 1 flat shape. All the acromial facet spurs were planed down in line with the acromioplasty. A 1 cm distal clavicle was resected using a 30 and 70-degree arthroscope to visualize resection. All debris was irrigated in the subacromial space and the arm was taken through range of motion, the repair was secured with the arm to side with rotation and there was no impingement. The skin portal sites were closed with interrupted nylon sutures. Sterile dressings were applied and abduction pillow sling immobilizer. The patient tolerated the procedure well. JER Flynn was my multimedia production assistant. He functioned as multimedia production assistant in the entire procedure. He assisted in patient positioning, prepping, draping, arm positioning, instrument and suture management and arm positioning and he performed skin closure and will participate in postoperative care of the patient. I attest to the content of the Intraoperative Record and any orders documented therein. Any exception s are noted below.
== END 2017-11-06 16:25 | disposition home or self-care (01) ==
LOC: C.ACU 08:04
PROVIDERS: ATTEND Orthopaedic Surgery Sports Medicine
DX: S46.011A Strain of muscle(s) and tendon(s) of the rotator cuff of right shoulder, initial encounter (principal); W17.89XA Other fall from one level to another, initial encounter; M75.21 Bicipital tendinitis, right shoulder; M19.011 Primary osteoarthritis, right shoulder; M75.41 Impingement syndrome of right shoulder; I10 Essential (primary) hypertension; E78.00 Pure hypercholesterolemia, unspecified; F17.200 Nicotine dependence, unspecified, uncomplicated; E66.9 Obesity, unspecified; Z88.5 Allergy status to narcotic agent